=== PATIENT | male | born 1980 | race Caucasian/White ===

== ENCOUNTER 2017-07-25 00:52 | Emergency (ER) | payer SELFPAY ==
[2017-07-25 01:00] VITALS: BP 161/85; PULSE 76; RESP 16; TEMP 98.4
[2017-07-25] MEDS ORDERED: HYDROcodone/APAP 5-325MG 1 EACH TAB PO STA (01:12)
[2017-07-25] MEDS ORDERED: PENICILLIN V POTASSIUM 250 MG TAB PO STA (01:12)
[2017-07-25] MEDS ORDERED: PENICILLIN VK 500MG STARTER 4 TAB BTL PO STA (01:12)
[2017-07-25] MEDS ORDERED: ACET/COD 300 MG/30 MG STARTER PACK 6 TAB BTL PO STA (01:12)
--- NOTE | 2017-07-25 01:17 | ED ---
ENT HPI - General Chief complaint: ENT Stated complaint: dental Time Seen by Provider: 07/25/17 01:02 Source: patient, RN notes reviewed Mode of arrival: ambulatory Limitations: no limitations - History of Present Illness Initial comments: This a 37-year-old male presents emergency Department with chief complaint of right-sided dental pain. Patient states that he's had broken tooth for a while states the swelling and pain is increased over the last 48 hours. Patient states there has been having cold issues felt like that he had a fever. He has no difficulty swallowing. He denies any current medications no recent infections. No difficulty swallowing. - Related Data Previous Rx's Medication Instructions Recorded Acetaminophen-Codeine 300-30mg 1 tab PO Q4H PRN #20 tablet 07/25/17 [Tylenol #3] Penicillin V Potassium [Pen Vee K] 500 mg PO QID #40 tablet 07/25/17 Allergies Allergy/AdvReac Type Severity Reaction Status Date / Time No Known Allergies Allergy Verified 07/25/17 01:00 Review of Systems ROS Statement: Those systems with pertinent positive or pertinent negative responses have been documented in the HPI. ROS Other: All systems not noted in ROS Statement are negative. Past Medical History Past Medical History: No Reported History History of Any Multi-Drug Resistant Organisms: None Reported Past Surgical History: No Surgical Hx Reported Past Psychological History: No Psychological Hx Reported Smoking Status: Current every day smoker Past Alcohol Use History: Occasional Past Drug Use History: Marijuana General Exam Limitations: no limitations General appearance: alert, in no apparent distress Head exam: Present: atraumatic, normocephalic, normal inspection Eye exam: Present: normal appearance, PERRL, EOMI. Absent: scleral icterus, conjunctival injection, periorbital swelling ENT exam: Present: mucous membranes moist, TM's normal bilaterally, normal external ear exam. Absent: normal oropharynx (Right-sided facial swelling, dental fracture noted right lower there is no drainable abscess.) Neck exam: Present: normal inspection, full ROM. Absent: tenderness, meningismus, lymphadenopathy Respiratory exam: Present: normal lung sounds bilaterally. Absent: respiratory distress, wheezes, rales, rhonchi, stridor Cardiovascular Exam: Present: regular rate, normal rhythm, normal heart sounds. Absent: systolic murmur, diastolic murmur, rubs, gallop, clicks Course Vital Signs 07/25/17 00:55 Temperature 98.4 F Pulse Rate 76 Respiratory 16 Rate Blood Pressure 161/85 O2 Sat by Pulse 98 Oximetry Medical Decision Making - Medical Decision Making 29-year-old male presented for dental infection, facial swelling. Patient started on penicillin, Tylenol codeine. Patient is advised to follow up with [facility] for recheck and return for any worsening symptoms. Disposition Clinical Impression: Dental infection Disposition: HOME SELF-CARE Condition: Stable Instructions: Dental Abscess (ED) Additional Instructions: Please return to the Emergency Department if symptoms worsen or any other concerns. Prescriptions: Acetaminophen-Codeine 300-30mg [Tylenol #3] 1 tab PO Q4H PRN #20 tablet PRN Reason: pain Penicillin V Potassium [Pen Vee K] 500 mg PO QID #40 tablet Referrals: None,Stated [Primary Care Provider] - 1-2 days Time of Disposition: 01:17
== END 2017-07-25 01:50 | disposition home or self-care (01) ==
LOC: EC 00:52
DX: K04.7 Periapical abscess without sinus (principal); S02.5XXA Fracture of tooth (traumatic), initial encounter for closed fracture; F17.200 Nicotine dependence, unspecified, uncomplicated; X58.XXXA Exposure to other specified factors, initial encounter
CPT/HCPCS: 99282